=== PATIENT | female | born 1955 | race Caucasian/White ===

== ENCOUNTER 2022-06-09 09:20 | Emergency (ER) | payer OTHER, MEDICAID ==
[~2022-06-09] VITALS: Ht 157.5 cm; Wt 72.6 kg
[2022-06-09 09:26] VITALS: BP 151/63
--- NOTE | 2022-06-09 10:00 | NUR ---
66 y/o female biba from home with c/o bilateral leg pain. Patient has 10/10 burning bilateral leg pain. Patient has + bilateral pedal pulses, + sensation, + feeling, + movement. Patient does not have any swelling or edema to bilateral legs. Patient fell on 03/13/2022. Patient is seeing a pain and bone specialist. Per patient, she was recently informed that she has rheumatoid arthritis. Medical History: DM, HTN, RHEUMATOID ARTHRITIS ALLERGY: TYLENOL
[2022-06-09] MEDS ORDERED: KETOROLAC 30 MG/ML VIAL IM ONE (10:25)
--- NOTE | 2022-06-09 10:25 | NUR ---
VALARIE Vera at bedside evaluating patient.
--- NOTE | 2022-06-09 10:53 | NUR ---
66/F BIBA FROM HOME. PER EMS PATIENT C/O 08/18 "BURNING" LIKE BILATERAL LEG PAIN X2 MONTHS. PATIENT REPORTS A FALL 3 MONTHS AGO BUT DENIES RECENT TRAUMA/INJURY, NO SWELLING OR REDNESS NOTED. BILATERAL PULSES AND SENSATION EQUAL. PATIENT REPORTS FOLLOWING UP WITH A PAIN DOCTOR.
--- NOTE | 2022-06-09 11:15 | NUR ---
Patient was assisted to use a bedside commode. Urine sample obtained.
[2022-06-09] MEDS ORDERED: CEPH-588 PO (11:36)
[2022-06-09] MEDS ORDERED: NAPR-1704 PO (11:36)
[2022-06-09 11:55] VITALS: BP 132/61
--- NOTE | 2022-06-09 11:55 | NUR ---
Patient discharged with v/s stable. Written and verbal after care instructions given. Patient alert, oriented and verbalized understanding of instructions. Wheel Chair Assisted with steady gait. All questions addressed prior to discharge. ID band removed. Patient advised to follow up with PMD. Rx of Keflex and Naproxen given. Opportunity to ask questions provided and answered.
--- NOTE | 2022-06-09 12:00 | NUR ---
The patient's care was reviewed and supervised by Daria Godfrey RN.
== END 2022-06-09 11:55 | disposition home or self-care (01) ==
LOC: MED 09:20
DX: N39.0 Urinary tract infection, site not specified (principal); G89.29 Other chronic pain; M25.561 Pain in right knee; M25.562 Pain in left knee; J45.909 Unspecified asthma, uncomplicated; E11.9 Type 2 diabetes mellitus without complications; I10 Essential (primary) hypertension; Z79.899 Other long term (current) drug therapy
CPT/HCPCS: 81002; 96372; 99283; J1885